=== PATIENT | male | born 1965 | race Caucasian/White ===

== ENCOUNTER → 2016-10-27 | Outpatient (CLI) | payer OTHER ==
--- NOTE | 2016-10-27 12:40 | DX ---
Chest, Two Views at 1150 hours on October 27, 2016 History: Bacterial pneumonia. J15.9. Comparison: September 26, 2016. Findings: Cardiac silhouette is within normal range. Almost complete resolution of left lower lobe pn eumonia with minimal linear density in the left costophrenic angle. Right lung is clear. No pleural e ffusion. Impression: 1. Resolving left lower lobe pneumonia with minimal linear residual opacity or scarring in the left c ostophrenic angle. 2. Recommend follow up in one month.
== END ==
LOC: CIMAGING 11:15
PROVIDERS: ATTEND Internal Medicine
DX: J15.9 Unspecified bacterial pneumonia (principal)
CPT/HCPCS: 71020-PO